=== PATIENT | female | born 1985 | race Caucasian/White ===

== ENCOUNTER 2017-05-10 23:52 | Emergency (ER) | payer BC ==
[~2017-05-10] VITALS: Ht 157.5 cm; Wt 59.0 kg
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
[2017-05-11] MEDS ORDERED: IBUPROFEN 400 MG TABLET PO ONE (00:30)
[2017-05-11] MEDS ORDERED: TDAP [DIPH/PERTUSSIS/TET] 0.5 ML VIAL IM ONE ×2 (00:30→02:16)
[2017-05-11] MEDS ORDERED: IBUPROFEN 400 MG TABLET ONE (00:45)
--- NOTE | 2017-05-11 00:47 | NUR ---
PT MEDICATED FOR PAIN. ABRASIONS CLEANED.
--- NOTE | 2017-05-11 02:20 | NUR ---
TETANUS [id number] 03/15/19
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
[2017-05-11 02:27] VITALS: BP 132/78
== END 2017-05-11 02:29 | disposition home or self-care (01) ==
LOC: ER 23:56
DX: S83.8X2A Sprain of other specified parts of left knee, initial encounter (principal); S93.692A Other sprain of left foot, initial encounter; S90.812A Abrasion, left foot, initial encounter; S80.212A Abrasion, left knee, initial encounter; V00.141A Fall from scooter (nonmotorized), initial encounter; Y93.89 Activity, other specified; Y92.89 Other specified places as the place of occurrence of the external cause; Y99.8 Other external cause status
CPT/HCPCS: 73564; 73630; 90471; 90715; 99284; A4606; Z7610